=== PATIENT | female | born 1960 | race Caucasian/White ===

== ENCOUNTER 2018-08-25 08:23 | Day surgery (SDC) | payer BC ==
[2018-08-25] MEDS ORDERED: LIDOCAINE 4% SOLUTION 50 ML BTL (09:36)
[2018-08-25] MEDS ORDERED: FENTAnyl 50 MCG/ML VIAL (10:09)
[2018-08-25] MEDS ORDERED: MIDAZOLAM 1 MG/ML 2 ML INJ ×2 (10:09)
== END 2018-08-25 15:29 | disposition home or self-care (01) ==
LOC: GIL 08:23
DX: K29.60 Other gastritis without bleeding (principal)
CPT/HCPCS: 43239; 88305; 88312